=== PATIENT | female | born 1970 | race Caucasian/White ===

== ENCOUNTER 2017-05-10 13:23 | Emergency (ER) | payer OTHER ==
--- NOTE | 2017-05-10 14:41 | ED ---
General Adult HPI - General Chief complaint: Skin/Abscess/Foreign Body Stated complaint: rash Time Seen by Provider: 05/10/17 14:01 Source: patient, RN notes reviewed Mode of arrival: ambulatory Limitations: no limitations - History of Present Illness Initial comments: 46 yo female with no significant past medical history presents for evaluation of a rash on her right leg with associated swelling. Patient states the rash has been worsening over the past 2 days however she has had a rash on and off for 6 months. His been on her back, and bilateral lower extremities, as well as her neck. The rash comes and goes will spontaneously resolve and then recur. She denies fever. Denies any recent antibiotics, she is not on any medication. She does have a history of lower extremity DVT but is not currently on any anticoagulation. Patient does believe the rash is parasitic in nature or may be related to sugar diet. - Related Data Home Medications Medication Instructions Recorded Confirmed No Known Home Medications [No 05/10/17 05/10/17 Known Home Medications] Allergies Allergy/AdvReac Type Severity Reaction Status Date / Time No Known Allergies Allergy Verified 05/10/17 14:01 Review of Systems ROS Statement: Those systems with pertinent positive or pertinent negative responses have been documented in the HPI. ROS Other: All systems not noted in ROS Statement are negative. Constitutional: Denies: fever, chills Respiratory: Denies: cough Endocrine: Denies: fatigue Gastrointestinal: Denies: nausea, vomiting Past Medical History Past Medical History: Deep Vein Thrombosis (DVT) History of Any Multi-Drug Resistant Organisms: None Reported Past Surgical History: Tubal Ligation Past Psychological History: No Psychological Hx Reported Smoking Status: Never smoker Past Alcohol Use History: Occasional Past Drug Use History: None Reported General Exam Limitations: no limitations General appearance: alert, in no apparent distress Head exam: Present: atraumatic, normocephalic Eye exam: Present: normal appearance, PERRL ENT exam: Present: normal exam, normal oropharynx, mucous membranes moist Neck exam: Present: normal inspection, full ROM Respiratory exam: Present: normal lung sounds bilaterally. Absent: respiratory distress Cardiovascular Exam: Present: regular rate, normal rhythm GI/Abdominal exam: Present: soft. Absent: distended, tenderness Extremities exam: Present: normal capillary refill, other (Rash described below) . Absent: tenderness Back exam: Present: rash noted Neurological exam: Present: alert, oriented X3, CN II-XII intact. Absent: motor sensory deficit Psychiatric exam: Present: normal affect, normal mood Skin exam: Present: warm, rash, erythema, vesicles. Absent: petechiae (Rash primarily on the right lower extremity and low back as well as upper neck, there is erythema, ulceration with superficial breakdown, no bulla, no petechia. ) Course Vital Signs 05/10/17 05/10/17 13:46 16:00 Temperature 96.8 F L Pulse Rate 73 63 Respiratory 16 18 Rate Blood Pressure 134/60 127/60 O2 Sat by Pulse 99 98 Oximetry Medical Decision Making - Medical Decision Making 46-year-old female presenting with a 6 month history of rash. Rash comes and goes over this time. Primarily in her right lower extremity back and neck. 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 Laboratory studies reveal normal episode come, normal platelets, C-reactive protein is 10.3 which is normal. Ultrasound is negative for acute DVT. Patient will be given outpatient dermatology follow-up. Case was discussed with the patient's primary care physician. He is aware of the rash and agrees with outpatient dermatology follow-up. - Lab Data Result diagrams: 05/10/17 14:28 05/10/17 14:28 Lab Results 05/10/17 05/10/17 05/10/17 Range/Units 14:28 14:28 14:28 WBC 6.1 (3.8-10.6) k/uL RBC 3.91 (3.80-5.40) m/uL Hgb 12.3 (11.4-16.0) gm/dL Hct 37.0 (34.0-46.0) % MCV 94.8 (80.0-100.0) fL MCH 31.5 (25.0-35.0) pg MCHC 33.2 (31.0-37.0) g/dL RDW 13.6 (11.5-15.5) % Plt Count 237 (150-450) k/uL Neutrophils % 60 % Lymphocytes % 26 % Monocytes % 6 % Eosinophils % 5 % Basophils % 1 % Neutrophils # 3.7 (1.3-7.7) k/uL Lymphocytes # 1.6 (1.0-4.8) k/uL Monocytes # 0.4 (0-1.0) k/uL Eosinophils # 0.3 (0-0.7) k/uL Basophils # 0.0 (0-0.2) k/uL ESR 18 (0-20) mm/hr Sodium 141 (137-145) mmol/L Potassium 3.8 (3.5-5.1) mmol/L Chloride 106 (98-107) mmol/L Carbon Dioxide 24 (22-30) mmol/L Anion Gap 11 mmol/L BUN 6 L (7-17) mg/dL Creatinine 0.70 (0.52-1.04) mg/dL Est GFR (MDRD) Af Amer >60 (>60 ml/min/1.73 sqM) Est GFR (MDRD) Non-Af >60 (>60 ml/min/1.73 sqM) Glucose 82 (74-99) mg/dL Calcium 9.1 (8.4-10.2) mg/dL Total Bilirubin 1.5 H (0.2-1.3) mg/dL AST 15 (14-36) U/L ALT 29 (9-52) U/L Alkaline Phosphatase 94 (38-126) U/L C-Reactive Protein 10.3 H (<10.0) mg/L Total Protein 6.8 (6.3-8.2) g/dL Albumin 4.0 (3.5-5.0) g/dL Urine Color Urine Appearance (Clear) Urine pH (5.0-8.0) Ur Specific [place] (1.001-1.035) Urine Protein (Negative) Urine Glucose (UA) (Negative) Urine Ketones (Negative) Urine Blood (Negative) Urine Nitrite (Negative) Urine Bilirubin (Negative) Urine Urobilinogen (<2.0) mg/dL Ur Leukocyte Esterase (Negative) Urine HCG, Qual Not Detected (Not Detectd) 05/10/17 Range/Units 14:28 WBC (3.8-10.6) k/uL RBC (3.80-5.40) m/uL Hgb (11.4-16.0) gm/dL Hct (34.0-46.0) % MCV (80.0-100.0) fL MCH (25.0-35.0) pg MCHC (31.0-37.0) g/dL RDW (11.5-15.5) % Plt Count (150-450) k/uL Neutrophils % % Lymphocytes % % Monocytes % % Eosinophils % % Basophils % % Neutrophils # (1.3-7.7) k/uL Lymphocytes # (1.0-4.8) k/uL Monocytes # (0-1.0) k/uL Eosinophils # (0-0.7) k/uL Basophils # (0-0.2) k/uL ESR (0-20) mm/hr Sodium (137-145) mmol/L Potassium (3.5-5.1) mmol/L Chloride (98-107) mmol/L Carbon Dioxide (22-30) mmol/L Anion Gap mmol/L BUN (7-17) mg/dL Creatinine (0.52-1.04) mg/dL Est GFR (MDRD) Af Amer (>60 ml/min/1.73 sqM) Est GFR (MDRD) Non-Af (>60 ml/min/1.73 sqM) Glucose (74-99) mg/dL Calcium (8.4-10.2) mg/dL Total Bilirubin (0.2-1.3) mg/dL AST (14-36) U/L ALT (9-52) U/L Alkaline Phosphatase (38-126) U/L C-Reactive Protein (<10.0) mg/L Total Protein (6.3-8.2) g/dL Albumin (3.5-5.0) g/dL Urine Color Light Yellow Urine Appearance Clear (Clear) Urine pH 7.5 (5.0-8.0) Ur Specific [place] 1.004 (1.001-1.035) Urine Protein Negative (Negative) Urine Glucose (UA) Negative (Negative) Urine Ketones Negative (Negative) Urine Blood Negative (Negative) Urine Nitrite Negative (Negative) Urine Bilirubin Negative (Negative) Urine Urobilinogen <2.0 (<2.0) mg/dL Ur Leukocyte Esterase Negative (Negative) Urine HCG, Qual (Not Detectd) Disposition Clinical Impression: Contact dermatitis Disposition: HOME SELF-CARE Instructions: Acute Rash (ED) Referrals: Frank Garza MD [Primary Care Provider] - 1-2 days Akua Cancino MD [STAFF PHYSICIAN] - 1-2 days Time of Disposition: 16:17
[2017-05-10 14:48] LABS: Basophils % (A) 1 %; CHCM 33.9; Eosinophils # (A) 0.3 k/uL (0-0.7); Eosinophils % (A) 5 %; HDW 2.52; HGB 12.3 gm/dL (11.4-16.0); Luc # (Auto) 0.11; Luc % (Auto) 2; Lymphocytes # (A) 1.6 k/uL (1.0-4.8); Lymphocytes % (A) 26 %; MCH 31.5 pg (25.0-35.0); MCHC 33.2 g/dL (31.0-37.0); MCV 94.8 fL (80.0-100.0); Mean Platelet Volume 7.6; Monocytes # (A) 0.4 k/uL (0-1.0); Monocytes % (A) 6 %; Neutrophils # (A) 3.7 k/uL (1.3-7.7); Neutrophils % (A) 60 %; RBC 3.91 m/uL (3.80-5.40); RDW 13.6 % (11.5-15.5); WBC 6.1 k/uL (3.8-10.6); WBC (Perox) 5.86
[2017-05-10 14:57] LABS: Appearance,Urine Clear (Clear); Bilirubin,Urine Negative (Negative); Glucose,Urine (UA) Negative (Negative); Ketones,Urine Negative (Negative); Leukocyte Esterase,Urine Negative (Negative); Nitrite,Urine Negative (Negative); PH, Urine 7.5 (5.0-8.0); Protein,Urine Negative (Negative); Specific Gravity,Urine 1.004 (1.001-1.035); UA Billing (MACRO vs. MICRO) CHEM; Urobilinogen,Urine <2.0 mg/dL (<2.0)
[2017-05-10 15:05] LABS: ALT 29 U/L (9-52); AST 15 U/L (14-36); Alkaline Phosphatase 94 U/L (38-126); Anion Gap 11 mmol/L; Blood Urea Nitrogen 6 mg/dL (7-17); C Reactive Protein 10.3 mg/L (<10.0); Calcium 9.1 mg/dL (8.4-10.2); Carbon Dioxide 24 mmol/L (22-30); Chloride 106 mmol/L (98-107); Glucose 82 mg/dL (74-99); Non-African American GFR(MDRD) >60 (>60 ml/min/1.73 sqM); Potassium 3.8 mmol/L (3.5-5.1); Sodium 141 mmol/L (137-145); Total Bilirubin 1.5 mg/dL (0.2-1.3); Total Protein 6.8 g/dL (6.3-8.2)
[2017-05-10 16:01] VITALS: RESP 18
[2017-05-10 16:01] LABS: Erythrocyte Sedimentation Rate 18 mm/hr (0-20)
--- NOTE | 2017-05-10 16:08 | US ---
EXAMINATION TYPE: US venous doppler duplex LE RT DATE OF EXAM: 05/10/2017 3:55 PM COMPARISON: NONE CLINICAL HISTORY: Pain. SIDE PERFORMED: Right TECHNIQUE: The lower extremity deep venous system is examined utilizing real time linear array sonog marco with graded compression, doppler sonography and color-flow sonography. VESSELS IMAGED: External Iliac Vein (EIV) Common Femoral Vein Deep Femoral Vein Greater Saphenous Vein * Femoral Vein Popliteal Vein Small Saphenous Vein * Proximal Calf Veins (* superficial vessels) Grayscale, color doppler, spectral doppler imaging performed of the deep veins of the lower extremity . There is normal flow, compressibility, vascular waveforms . Right Leg: Negative for DVT IMPRESSION: No evidence for DVT.
[2017-05-10 16:51] VITALS: BP 122/59; PULSE 66; TEMP 98.5
== END 2017-05-10 16:50 | disposition home or self-care (01) ==
LOC: EC 13:23
DX: L25.9 Unspecified contact dermatitis, unspecified cause (principal)
CPT/HCPCS: 36415; 80053; 81003; 81025; 85025; 85652; 86140; 99283

== ENCOUNTER 2019-09-05 10:38 | Emergency (ER) | payer OTHER ==
[2019-09-05] MEDS ORDERED: SODIUM CHLORIDE 0.9% 1,000 ML IV ONE (11:16)
[2019-09-05] MEDS ORDERED: MORPHINE SULFATE 4 MG/ML SYRINGE IVP STA (11:55)
[2019-09-05] MEDS ORDERED: KETOROLAC 30 MG/ML 1 ML VIAL IVP STA (11:55)
[2019-09-05 11:56] VITALS: TEMP 97.2
--- NOTE | 2019-09-05 11:56 | ED ---
Skin/Abscess/FB HPI - General Chief complaint: Skin/Abscess/Foreign Body Stated complaint: leg pain Time Seen by Provider: 09/05/19 10:44 Source: patient, RN notes reviewed, old records reviewed Mode of arrival: ambulatory Limitations: no limitations - History of Present Illness Initial comments: 48-year-old female, presents today for evaluation for concern for a rash over bilateral lower extremities, arms neck and ears. She's been having this rash f or over 3 years intermittently. Patient poor she's been a multiple specialists including [facility] infectious disease. As stated the Patient doesn't seem to have any infectious disease and unsure of the source of her rash has time. She reports she had a biopsy 2 weeks ago but doesn't have the results that this time. Patient came in today for concern for worsening pain in her lower extremities. Patient states that she has had no fevers or chills. She frequently wraps her legs with menthol-like dressings, and place his magnets on her legs to help with pain. - Related Data Home Medications Medication Instructions Recorded Confirmed Lidocaine/Menthol [Icy Hot 4%-1% 1 patch TOPICAL DAILY PRN 09/05/19 09/05/19 Patch] Allergies Allergy/AdvReac Type Severity Reaction Status Date / Time No Known Allergies Allergy Verified 09/05/19 13:42 Review of Systems ROS Statement: Those systems with pertinent positive or pertinent negative responses have been documented in the HPI. ROS Other: All systems not noted in ROS Statement are negative. Past Medical History Past Medical History: Deep Vein Thrombosis (DVT) History of Any Multi-Drug Resistant Organisms: None Reported Past Surgical History: Tubal Ligation Past Psychological History: No Psychological Hx Reported Smoking Status: Never smoker Past Alcohol Use History: Occasional Past Drug Use History: None Reported General Exam - General Exam Comments Initial Comments: 48-year-old female. Alert and oriented. No distress. Limitations: no limitations General appearance: alert, in no apparent distress Head exam: Present: atraumatic, normocephalic, normal inspection Eye exam: Present: normal appearance, PERRL, EOMI. Absent: scleral icterus, conjunctival injection, periorbital swelling ENT exam: Present: normal exam, mucous membranes moist Neck exam: Present: normal inspection. Absent: tenderness, meningismus, lymphadenopathy Respiratory exam: Present: normal lung sounds bilaterally. Absent: respiratory distress, wheezes, rales, rhonchi, stridor Cardiovascular Exam: Present: regular rate, normal rhythm, normal heart sounds. Absent: systolic murmur, diastolic murmur, rubs, gallop, clicks GI/Abdominal exam: Present: soft, normal bowel sounds. Absent: distended, tenderness, guarding, rebound, rigid Back exam: Present: normal inspection Neurological exam: Present: alert, oriented X3, CN II-XII intact Psychiatric exam: Present: normal affect, normal mood Skin exam: Present: warm, dry, intact, normal color, rash (Patient has excoriations over lower extremities, multiple areas of picking hyde. ) Course Vital Signs 09/05/19 09/05/19 09/05/19 10:44 11:55 12:16 Temperature 98.5 F 97.2 F L Pulse Rate 109 H 64 70 Respiratory 18 18 16 Rate Blood Pressure 103/63 103/67 98/59 O2 Sat by Pulse 98 99 100 Oximetry 09/05/19 09/05/19 09/05/19 12:30 13:30 14:17 Temperature Pulse Rate 74 70 74 Respiratory 18 18 20 Rate Blood Pressure 98/59 86/54 95/62 O2 Sat by Pulse 99 99 99 Oximetry Medical Decision Making - Medical Decision Making 48-year-old female presents today for concerns for intermittent rash for the past 3 years. Patient believes that she also had a parasite past her stool she is a very of this on her bone. She also has multiple pictures on her phone of her skin so on the back. Patient at this time has no fevers other complaints. Her main complaint is the pain in her lower extremities from the rash. At this time Patient has blood work was reviewed and unremarkable. We discussed case with Dr. Robles and discussed case with Dr. Jerez. States the Patient is follow-up with her outpatient office assistant. This time patient's given a short course of pain medicine and advised to follow close follow-up with primary care doctor and specialist. All questions were answered. - Lab Data Result diagrams: 09/05/19 11:45 09/05/19 11:45 Lab Results 09/05/19 09/05/19 Range/Units 11:45 11:45 WBC 8.0 (3.8-10.6) k/uL RBC 4.09 (3.80-5.40) m/uL Hgb 12.2 (11.4-16.0) gm/dL Hct 37.6 (34.0-46.0) % MCV 91.8 (80.0-100.0) fL MCH 29.8 (25.0-35.0) pg MCHC 32.5 (31.0-37.0) g/dL RDW 12.9 (11.5-15.5) % Plt Count 342 (150-450) k/uL Neutrophils % 64 % Lymphocytes % 18 % Monocytes % 4 % Eosinophils % 13 % Basophils % 1 % Neutrophils # 5.1 (1.3-7.7) k/uL Lymphocytes # 1.4 (1.0-4.8) k/uL Monocytes # 0.3 (0-1.0) k/uL Eosinophils # 1.0 H (0-0.7) k/uL Basophils # 0.1 (0-0.2) k/uL ESR 25 H (0-20) mm/hr Sodium 139 (137-145) mmol/L Potassium 5.3 H (3.5-5.1) mmol/L Chloride 105 (98-107) mmol/L Carbon Dioxide 24 (22-30) mmol/L Anion Gap 10 mmol/L BUN 14 (7-17) mg/dL Creatinine 0.57 (0.52-1.04) mg/dL Est GFR (CKD-EPI)AfAm >90 (>60 ml/min/1.73 sqM) Est GFR (CKD-EPI)NonAf >90 (>60 ml/min/1.73 sqM) Glucose 107 H (74-99) mg/dL Calcium 9.5 (8.4-10.2) mg/dL Total Bilirubin 0.8 (0.2-1.3) mg/dL AST 28 (14-36) U/L ALT 13 (9-52) U/L Alkaline Phosphatase 106 (38-126) U/L C-Reactive Protein 11.5 H (<10.0) mg/L Total Protein 8.0 (6.3-8.2) g/dL Albumin 4.5 (3.5-5.0) g/dL Disposition Clinical Impression: Rash, Excoriation Disposition: HOME SELF-CARE Condition: Good Instructions (If sedation given, give patient instructions): Acute Rash (ED) Additional Instructions: Please use medication as discussed. follow up with biopsy. Please follow up with family doctor if symptoms have not improved over the next two days. Please return to the emergency room if your symptoms increase or worsen or for any other concerns. Is patient prescribed a controlled substance at d/c from ED?: No Referrals: Frank Garza MD [Primary Care Provider] - 1-2 days Time of Disposition: 14:00
[2019-09-05 12:00] LABS: Basophils # (A) 0.1 k/uL (0-0.2); Basophils % (A) 1 %; Eosinophils % (A) 13 %; HCT 37.6 % (34.0-46.0); HGB 12.2 gm/dL (11.4-16.0); Lymphocytes # (A) 1.4 k/uL (1.0-4.8); Lymphocytes % (A) 18 %; MCH 29.8 pg (25.0-35.0); MCHC 32.5 g/dL (31.0-37.0); MCV 91.8 fL (80.0-100.0); Mean Platelet Volume 6.8; Monocytes # (A) 0.3 k/uL (0-1.0); Monocytes % (A) 4 %; Neutrophils # (A) 5.1 k/uL (1.3-7.7); Neutrophils % (A) 64 %; Platelet Count 342 k/uL (150-450); RBC 4.09 m/uL (3.80-5.40); RDW 12.9 % (11.5-15.5)
[2019-09-05 12:14] LABS: ALT 13 U/L (9-52); AST 28 U/L (14-36); African American GFR (CKD) >90 (>60 ml/min/1.73 sqM); Albumin 4.5 g/dL (3.5-5.0); Alkaline Phosphatase 106 U/L (38-126); Anion Gap 10 mmol/L; Blood Urea Nitrogen 14 mg/dL (7-17); C Reactive Protein 11.5 mg/L (<10.0); Calcium 9.5 mg/dL (8.4-10.2); Carbon Dioxide 24 mmol/L (22-30); Chloride 105 mmol/L (98-107); Glucose 107 mg/dL (74-99); Sodium 139 mmol/L (137-145); Total Bilirubin 0.8 mg/dL (0.2-1.3)
[2019-09-05 12:29] LABS: Potassium 5.3 mmol/L (3.5-5.1)
[2019-09-05 13:04] LABS: Erythrocyte Sedimentation Rate 25 mm/hr (0-20)
[2019-09-05] MEDS ORDERED: ACET/COD 300 MG/30 MG STARTER PACK 6 TAB BTL PO STA (14:01)
[2019-09-05 14:17] VITALS: BP 95/62; PULSE 74; RESP 20
== END 2019-09-05 14:27 | disposition home or self-care (01) ==
LOC: EC 10:38
DX: S80.812A Abrasion, left lower leg, initial encounter (principal); S80.811A Abrasion, right lower leg, initial encounter; F42.4 Excoriation (skin-picking) disorder; X58.XXXA Exposure to other specified factors, initial encounter
CPT/HCPCS: 36415; 80053; 85652; 85025; 86140; 87040; 86038; 99284; 96374; 96375; 96361; J2270; J1885

== ENCOUNTER 2019-10-11 11:47 | Emergency (ER) | payer OTHER ==
[2019-10-11 11:59] VITALS: BP 103/61; PULSE 98; RESP 18; TEMP 98.5
[2019-10-11 13:01] LABS: Basophils # (A) 0.1 k/uL (0-0.2); Basophils % (A) 1 %; Eosinophils # (A) 0.4 k/uL (0-0.7); Eosinophils % (A) 5 %; HCT 34.7 % (34.0-46.0); HGB 11.7 gm/dL (11.4-16.0); Lymphocytes # (A) 1.3 k/uL (1.0-4.8); Lymphocytes % (A) 17 %; MCH 29.8 pg (25.0-35.0); MCHC 33.6 g/dL (31.0-37.0); MCV 88.5 fL (80.0-100.0); Mean Platelet Volume 7.6; Monocytes # (A) 0.4 k/uL (0-1.0); Monocytes % (A) 6 %; Neutrophils # (A) 5.2 k/uL (1.3-7.7); Neutrophils % (A) 70 %; Platelet Count 258 k/uL (150-450); RBC 3.92 m/uL (3.80-5.40); RDW 12.7 % (11.5-15.5); WBC 7.5 k/uL (3.8-10.6)
[2019-10-11 13:03] LABS: Appearance,Urine Clear (Clear); Bilirubin,Urine Negative (Negative); Blood,Urine Trace (Negative); Color,Urine Colorless; Glucose,Urine (UA) Negative (Negative); Ketones,Urine Negative (Negative); Leukocyte Esterase,Urine Moderate (Negative); Nitrite,Urine Negative (Negative); PH, Urine 5.5 (5.0-8.0); Protein,Urine Negative (Negative); RBC,Urine <1 /hpf (0-5); Specific Gravity,Urine 1.002 (1.001-1.035); Urobilinogen,Urine <2.0 mg/dL (<2.0); WBC,Urine <1 /hpf (0-5)
[2019-10-11 13:09] LABS: ALT 15 U/L (4-34); AST 20 U/L (14-36); African American GFR (CKD) >90 (>60 ml/min/1.73 sqM); Albumin 4.2 g/dL (3.5-5.0); Alkaline Phosphatase 108 U/L (38-126); Anion Gap 11 mmol/L; Blood Urea Nitrogen 15 mg/dL (7-17); Calcium 9.3 mg/dL (8.4-10.2); Carbon Dioxide 25 mmol/L (22-30); Chloride 101 mmol/L (98-107); Glucose 106 mg/dL (74-99); Non-African American GFR(CKD) 82 (>60 ml/min/1.73 sqM); Potassium 3.6 mmol/L (3.5-5.1); Sodium 137 mmol/L (137-145); Squamous Epithelial Cell,Urine 1 /hpf (0-4); Total Bilirubin 0.7 mg/dL (0.2-1.3); Total Protein 7.6 g/dL (6.3-8.2)
--- NOTE | 2019-10-11 13:15 | ED ---
General Adult HPI - General Chief complaint: Skin/Abscess/Foreign Body Stated complaint: right neck swelling Time Seen by Provider: 10/11/19 12:00 Source: patient, RN notes reviewed Mode of arrival: ambulatory Limitations: no limitations - History of Present Illness Initial comments: 49-year-old female presents emergency Department chief complaint of right-sided neck swelling. Patient states that she's had this ongoing skin issue and which she has peeling, discharge from her skin and states that she opens up and disorders everywhere. She has been evaluated extensively at multiple facilities with no acute findings. She states that she also has had what appeared to be herself forms in her stool in the past. Patient states she was never treated for this. She states her main complaint today is right-sided neck swelling. Patient states that she had some peeling of her skin on the ears states that she now has swelling, tenderness and a firm feeling to the right cervical neck she has no difficulty breathing or difficulty swallowing. She states she's had extreme infections of her legs from his infected digit skin areas. Patient believes that she may have some sort of undiagnosed skin disorder versus possible parasite versus heavy metal infection. Patient states that she always has normal lab work. - Related Data Home Medications Medication Instructions Recorded Confirmed Lidocaine/Menthol [Icy Hot 4%-1% 1 patch TOPICAL DAILY PRN 09/05/19 09/05/19 Patch] Allergies Allergy/AdvReac Type Severity Reaction Status Date / Time acetaminophen [From Tylenol] Allergy Itching Verified 10/11/19 11:59 Review of Systems ROS Statement: Those systems with pertinent positive or pertinent negative responses have been documented in the HPI. ROS Other: All systems not noted in ROS Statement are negative. Past Medical History Past Medical History: Deep Vein Thrombosis (DVT) History of Any Multi-Drug Resistant Organisms: None Reported Past Surgical History: Tubal Ligation Past Psychological History: No Psychological Hx Reported Smoking Status: Never smoker Past Alcohol Use History: Occasional Past Drug Use History: None Reported General Exam Limitations: no limitations General appearance: alert, in no apparent distress Head exam: Present: atraumatic, normocephalic, normal inspection Eye exam: Present: normal appearance, PERRL, EOMI. Absent: scleral icterus, conjunctival injection, periorbital swelling ENT exam: Present: normal exam, normal oropharynx, mucous membranes moist, TM's normal bilaterally, normal external ear exam Neck exam: Present: tenderness, full ROM, lymphadenopathy, other (Large right- sided mass). Absent: normal inspection, meningismus Respiratory exam: Present: normal lung sounds bilaterally. Absent: respiratory distress, wheezes, rales, rhonchi, stridor Cardiovascular Exam: Present: regular rate, normal rhythm, normal heart sounds. Absent: systolic murmur, diastolic murmur, rubs, gallop, clicks GI/Abdominal exam: Present: soft, normal bowel sounds. Absent: distended, tenderness, guarding, rebound, rigid Neurological exam: Present: alert, oriented X3, CN II-XII intact Skin exam: Present: warm, rash. 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 Patient lives unremarkable. Patient be referred to ENT for surgical admission and removal. - Lab Data Result diagrams: 10/11/19 12:46 10/11/19 12:46 Lab Results 10/11/19 10/11/19 10/11/19 Range/Units 12:46 12:46 12:46 WBC 7.5 (3.8-10.6) k/uL RBC 3.92 (3.80-5.40) m/uL Hgb 11.7 (11.4-16.0) gm/dL Hct 34.7 (34.0-46.0) % MCV 88.5 (80.0-100.0) fL MCH 29.8 (25.0-35.0) pg MCHC 33.6 (31.0-37.0) g/dL RDW 12.7 (11.5-15.5) % Plt Count 258 (150-450) k/uL Neutrophils % 70 % Lymphocytes % 17 % Monocytes % 6 % Eosinophils % 5 % Basophils % 1 % Neutrophils # 5.2 (1.3-7.7) k/uL Lymphocytes # 1.3 (1.0-4.8) k/uL Monocytes # 0.4 (0-1.0) k/uL Eosinophils # 0.4 (0-0.7) k/uL Basophils # 0.1 (0-0.2) k/uL Sodium 137 (137-145) mmol/L Potassium 3.6 (3.5-5.1) mmol/L Chloride 101 (98-107) mmol/L Carbon Dioxide 25 (22-30) mmol/L Anion Gap 11 mmol/L BUN 15 (7-17) mg/dL Creatinine 0.83 (0.52-1.04) mg/dL Est GFR (CKD-EPI)AfAm >90 (>60 ml/min/1.73 sqM) Est GFR (CKD-EPI)NonAf 82 (>60 ml/min/1.73 sqM) Glucose 106 H (74-99) mg/dL Plasma Lactic Acid [place] (0.7-2.0) mmol/L Calcium 9.3 (8.4-10.2) mg/dL Total Bilirubin 0.7 (0.2-1.3) mg/dL AST 20 (14-36) U/L ALT 15 (4-34) U/L Alkaline Phosphatase 108 (38-126) U/L Total Protein 7.6 (6.3-8.2) g/dL Albumin 4.2 (3.5-5.0) g/dL TSH 3.090 (0.465-4.680) mIU/L Urine Color Colorless Urine Appearance Clear (Clear) Urine pH 5.5 (5.0-8.0) Ur Specific [place] 1.002 (1.001-1.035) Urine Protein Negative (Negative) Urine Glucose (UA) Negative (Negative) Urine Ketones Negative (Negative) Urine Blood Trace H (Negative) Urine Nitrite Negative (Negative) Urine Bilirubin Negative (Negative) Urine Urobilinogen <2.0 (<2.0) mg/dL Ur Leukocyte Esterase Moderate H (Negative) Urine RBC <1 (0-5) /hpf Urine WBC <1 (0-5) /hpf Ur Squamous Epith Cells 1 (0-4) /hpf Heterophile Antibody (Negative) 10/11/19 10/11/19 Range/Units 12:46 13:27 WBC (3.8-10.6) k/uL RBC (3.80-5.40) m/uL Hgb (11.4-16.0) gm/dL Hct (34.0-46.0) % MCV (80.0-100.0) fL MCH (25.0-35.0) pg MCHC (31.0-37.0) g/dL RDW (11.5-15.5) % Plt Count (150-450) k/uL Neutrophils % % Lymphocytes % % Monocytes % % Eosinophils % % Basophils % % Neutrophils # (1.3-7.7) k/uL Lymphocytes # (1.0-4.8) k/uL Monocytes # (0-1.0) k/uL Eosinophils # (0-0.7) k/uL Basophils # (0-0.2) k/uL Sodium (137-145) mmol/L Potassium (3.5-5.1) mmol/L Chloride (98-107) mmol/L Carbon Dioxide (22-30) mmol/L Anion Gap mmol/L BUN (7-17) mg/dL Creatinine (0.52-1.04) mg/dL Est GFR (CKD-EPI)AfAm (>60 ml/min/1.73 sqM) Est GFR (CKD-EPI)NonAf (>60 ml/min/1.73 sqM) Glucose (74-99) mg/dL Plasma Lactic Acid [place] 1.1 (0.7-2.0) mmol/L Calcium (8.4-10.2) mg/dL Total Bilirubin (0.2-1.3) mg/dL AST (14-36) U/L ALT (4-34) U/L Alkaline Phosphatase (38-126) U/L Total Protein (6.3-8.2) g/dL Albumin (3.5-5.0) g/dL TSH (0.465-4.680) mIU/L Urine Color Urine Appearance (Clear) Urine pH (5.0-8.0) Ur Specific [place] (1.001-1.035) Urine Protein (Negative) Urine Glucose (UA) (Negative) Urine Ketones (Negative) Urine Blood (Negative) Urine Nitrite (Negative) Urine Bilirubin (Negative) Urine Urobilinogen (<2.0) mg/dL Ur Leukocyte Esterase (Negative) Urine RBC (0-5) /hpf Urine WBC (0-5) /hpf Ur Squamous Epith Cells (0-4) /hpf Heterophile Antibody Negative (Negative) Disposition 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 Is patient prescribed a controlled substance at d/c from ED?: No Referrals: Frank Garza MD [Primary Care Provider] - 1-2 days Mendoza Florian MD [STAFF PHYSICIAN] - 1-2 days Time of Disposition: 14:30
--- NOTE | 2019-10-11 13:39 | CT ---
EXAMINATION TYPE: CT soft tissue neck w con DATE OF EXAM: 10/11/2019 1:27 PM COMPARISON: None HISTORY: Right neck swelling CT DLP: 198.7 mGycm Automated exposure control for dose reduction was used. CONTRAST: CT scan of the neck is performed following with IV Contrast, patient injected with 100 ml mL of Isovu e 300. Axial images are obtained, coronal and sagittal reformatted images are reviewed. FINDINGS: Visualized intracranial structures are unremarkable. Visualized portions of the paranasal sinuses and mastoids are clear. Visualized portions of the lungs are normal. There is straightening of the normal cervical lordosis. Alignment is maintained. Atlantoaxial relatio nships are normal. There is degenerative disc disease and hypertrophic spondylosis most marked at C4- 5, C5-6 and C6-7. There is mild uncovertebral joint disease present at these levels. The facets are u nremarkable. There is enlargement of the right parotid gland. There is a heterogenous 2 cm lesion in the main body of the gland. A second 1.3 cm lesion is noted just inferior to this. The left parotid gland appears normal. Both submandibular glands appear normal. There is an enlarged 1.2 cm deep cervical node on th e right. There are at least 2 adjacent lymph nodes which are enlarged to a lesser extent. There are n o pathologic lymph nodes noted on the left. Parapharyngeal, oropharyngeal and laryngeal soft tissues are normal. The thyroid gland enhances homogeneously. IMPRESSION: 1. MULTIPLE RIGHT-SIDED PAROTID NODULES. THE MULTIPLICITY FAVORS PLEOMORPHIC ADENOMA. THE PRESENCE OF LYMPH NODES ON THE RIGHT IS CONCERNING. TISSUE DIAGNOSIS WOULD LIKELY BE WORTHWHILE. 2. DEGENERATIVE CHANGE WITHIN THE CERVICAL SPINE.
== END 2019-10-11 14:42 | disposition home or self-care (01) ==
LOC: EC 11:47
DX: D11.0 Benign neoplasm of parotid gland (principal); Z88.6 Allergy status to analgesic agent
CPT/HCPCS: 36415; 83655 ×2; 80053; 84443; 83605; 85025; 86308; 81001; 82175; 83825 ×2; 82570; 70491; 99284; Q9967

== ENCOUNTER 2019-10-27 12:36 | Day surgery (SDC) | payer OTHER ==
[2019-10-27 13:25] VITALS: RESP 18; TEMP 98.1
--- NOTE | 2019-10-27 14:56 | US ---
ULTRASOUND GUIDED FNA AND CORE BIOPSY RIGHT PAROTID MASS: CLINICAL HISTORY: Right parotid mass requested for biopsy. Patient reports that the mass is recently ruptured with bruising coming from the skin. Preliminary imaging demonstrated diffuse heterogeneity w ithin the soft tissues. FINDINGS: The procedure was explained to the patient. The risks, complications, benefits and alternatives were discussed and any questions were answered. Informed consent was obtained. Patient was placed supin e on the ultrasound table and prepped and draped in the usual sterile fashion. Utilizing a 25 gauge needle, 3 passes were made into the suspected location the right parotid mass. The lymph node could n ot be seen. 2 18-gauge core samples were also obtained. Patient was stable throughout the procedure. Pathology is pending. All elements of maximal barrier technique were utilized. IMPRESSION: 1. Successful ultrasound guided FNA and core biopsy right parotid mass.
[2019-10-27 17:04] VITALS: BP 120/70; PULSE 72
== END 2019-10-27 14:15 | disposition home or self-care (01) ==
LOC: RADPROMAIN 12:36
PROVIDERS: ATTEND Otolaryngology
DX: K11.20 Sialoadenitis, unspecified (principal)
CPT/HCPCS: 10005; 42400; 76942; 87070; 87077; 87186; 87205; 88305; 88312

== ENCOUNTER → 2020-06-17 | Outpatient (CLI) | payer OTHER ==
[2020-06-17 15:38] LABS: Basophils % (A) 1 %; Eosinophils # (A) 0.4 k/uL (0-0.7); Eosinophils % (A) 7 %; HGB 12.5 gm/dL (11.4-16.0); Lymphocytes # (A) 1.3 k/uL (1.0-4.8); Lymphocytes % (A) 26 %; MCH 29.7 pg (25.0-35.0); MCHC 31.3 g/dL (31.0-37.0); MCV 95.1 fL (80.0-100.0); Mean Platelet Volume 7.6; Monocytes # (A) 0.2 k/uL (0-1.0); Monocytes % (A) 5 %; Neutrophils # (A) 2.9 k/uL (1.3-7.7); Neutrophils % (A) 60 %; Platelet Count 256 k/uL (150-450); RBC 4.21 m/uL (3.80-5.40); RDW 13.1 % (11.5-15.5); WBC 4.9 k/uL (3.8-10.6)
[2020-06-17 23:55] LABS: ALT 13 U/L (8-44); AST 18 U/L (13-35); African American GFR (CKD) 116.3 (60.0-200.0); Albumin/Globulin Ratio 1.68 (1.60-3.17); Alkaline Phosphatase 105 U/L (41-126); BUN/Creat Ratio 11.43 Ratio (12.00-20.00); C Reactive Protein <0.4 mg/dL (0.0-0.8); Calcium 9.7 mg/dL (8.7-10.3); Chloride 106 mmol/L (96-109); Globulin 2.8 g/dL (1.6-3.3); Glucose 87 mg/dL (70-110); Non-African American GFR(CKD) 100.3 (60.0-200.0); Sodium 140 mmol/L (135-145); Total Bilirubin 0.8 mg/dL (0.3-1.2); Total Protein 7.5 g/dL (6.2-8.2)
[2020-06-18 00:42] LABS: Erythrocyte Sedimentation Rate 57 mm/Hr (0-30)
[2020-06-18 00:44] LABS: INR 1.05 (0.90-1.11); Prothrombin Time 11.2 sec (9.9-11.9)
[2020-06-18 07:08] LABS: Gliadin AB IgA, Deaminated NEGATIVE (NEGATIVE); Gliadin AB IgA, Unit <0.2 U/mL; Gliadin AB IgG, Deaminated NEGATIVE (NEGATIVE)
== END | disposition home or self-care (01) ==
LOC: LABWHC1 14:49
PROVIDERS: ATTEND Nurse Practitioner
DX: D68.59 Other primary thrombophilia (principal); R19.4 Change in bowel habit
CPT/HCPCS: 36415; 80053; 83516; 83630; 85025; 85610; 85652; 86140; 87045; 87046; 87328; 87329

== ENCOUNTER 2020-06-21 10:00 | Day surgery (SDC) | payer OTHER ==
[2020-06-16 16:27] VITALS: BMI 24.5
[2020-06-21] MEDS ORDERED: LACTATED RINGERS 1,000 ML IV SCH (10:36)
[2020-06-21] MEDS ORDERED: LIDOCAINE 1% (10MG/ML) FOR IV START INTRADERMA PRN (10:36)
[2020-06-21 10:41] VITALS: TEMP 98.1
[2020-06-21] MEDS ORDERED: LACTATED RINGERS 1,000 ML IV ONE (10:41)
[2020-06-21] MEDS ORDERED: PROPOFOL 10 MG/ML 20 ML VIAL IV ONE (12:28)
[2020-06-21] MEDS ORDERED: LIDOCAINE 1% INJ 10MG/ML (20 ML MDV) ONE (12:28)
--- NOTE | 2020-06-21 13:15 | P.PCN ---
Date of Procedure: 06/21/20 Description of Procedure: Brief history: Patient is a 49-year-old female presenting for outpatient evaluation with EGD and colonoscopy for nausea and vomiting and altered bowel function. Patient reports a four-year history of multiple complaints including skin and digestive problems. She reports painful bumping on itchy red skin rash. She had been seen at [facility] by the dermatology and infectious disease service for evaluation. She reports multiple loose bowel movements daily one to 3 approximately described as mucoid loose black sludge she also reports the passage of parasites instrumentations in her stool. She states previous stool testing negative for parasites. No history of colonoscopy or EGD. Procedure performed: Esophagogastroduodenoscopy with biopsy Colonoscopy with biopsy Estimated blood loss: Minimal. Preoperative diagnosis: Nausea and vomiting, altered bowel function Anesthesia: MAC Procedure: After informed consent was obtained from the patient was brought into the endoscopy unit and IV sedation was administered by anesthesia under continuous monitoring. Initially upper endoscopy was done. The Olympus GF 190 video endoscope was inserted into the mouth and esophagus intubated without any difficulty and was gradually advanced into the stomach and duodenum and carefully examined. The bulb and second part of the duodenum appeared normal, with biopsies taken. The scope was then withdrawn into the stomach adequately insufflated with air and upon careful examination the antrum and body, cardia and fundus appeared normal, except for some mild punctate erythema in the antrum and body suggestive of mild gastritis with biopsies taken. The scope was then withdrawn into the esophagus. The GE junction was located at 38 cm to the incisors and biopsied. It appeared regular with no erythema erosions or ulcerations. Rest of the esophagus appeared normal. Patient tolerated the procedure well. At this time the patient continued to remain sedation. Initial digital rectal examination was normal. Olympus CF 190 video colonoscope was then inserted into the rectum and gradually advanced to the cecum without any difficulty. Careful examination was performed as the scope was gradually being withdrawn. The prep was fair with a large amount of liquid and semisolid stool throughout the colon which was extensively lavaged and suctioned, however complete visualization was not possible due to the fair prep. 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 The terminal ileum was intubated and also appeared normal. Random biopsies were taken of the terminal ileum, right colon, transverse colon, left colon and rectum due to the patient's complaints of altered bowel function. Retroflexion was performed in the rectum and no lesions were noted. Patient tolerated the procedure well. Impression: 1. Mild gastritis. Biopsies of the duodenum, antrum and body and GE junction. 2. 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 Otherwise normal-appearing colon from rectum to cecum with normal-appearing terminal ileum and random biopsies taken of the terminal ileum, right colon, transverse colon, left colon and rectum given altered bowel function. Fair prep. Recommendations: Findings of this examination were discussed with the patient as well as her fri end. Okay to resume diet. Okay to resume medications. Await pathology from biopsies. The patient has an appointment scheduled in the gastroenterology clinic and agrees to follow-up for the results of her biopsies as well as further medical management. Given the fair prep, recommendation is also for repeat colonoscopy in the next 3-6 months with a 2 day prep for screening for malignant neoplasm of the colon.
[2020-06-21 13:16] VITALS: RESP 16
[2020-06-21 13:32] VITALS: BP 128/93; PULSE 67
== END 2020-06-21 14:10 | disposition home or self-care (01) ==
LOC: ORWHC2ENDO 10:00
PROVIDERS: ATTEND Internal Medicine
DX: K29.50 Unspecified chronic gastritis without bleeding (principal); K63.9 Disease of intestine, unspecified; R21 Rash and other nonspecific skin eruption; Z88.6 Allergy status to analgesic agent; Z98.51 Tubal ligation status; Z98.890 Other specified postprocedural states; Z85.828 Personal history of other malignant neoplasm of skin; Z86.718 Personal history of other venous thrombosis and embolism
CPT/HCPCS: 45380; 43239; 88305; 88313; J2001; J2704

== ENCOUNTER → 2020-10-06 | Outpatient (CLI) | payer OTHER ==
[2020-10-06 13:19] LABS: Basophils % (A) 1 %; Eosinophils # (A) 0.2 k/uL (0-0.7); Eosinophils % (A) 6 %; HCT 37.7 % (34.0-46.0); HGB 12.3 gm/dL (11.4-16.0); Lymphocytes # (A) 1.1 k/uL (1.0-4.8); Lymphocytes % (A) 29 %; MCH 30.2 pg (25.0-35.0); MCHC 32.5 g/dL (31.0-37.0); MCV 92.7 fL (80.0-100.0); Mean Platelet Volume 7.5; Monocytes # (A) 0.2 k/uL (0-1.0); Monocytes % (A) 6 %; Neutrophils # (A) 2.2 k/uL (1.3-7.7); Neutrophils % (A) 55 %; Platelet Count 211 k/uL (150-450); RBC 4.07 m/uL (3.80-5.40); RDW 13.5 % (11.5-15.5); WBC 3.9 k/uL (3.8-10.6)
[2020-10-06 16:19] LABS: Erythrocyte Sedimentation Rate 17 mm/hr (0-20)
[2020-10-06 22:51] LABS: Thyroid Peroxidase Antibodies 405.9 U/mL (0.0-60.0)
[2020-10-06 23:53] LABS: % Iron Saturation 11.94 (12.00-45.00); ALT 15 U/L (8-44); AST 14 U/L (13-35); African American GFR (CKD) 115.5 (60.0-200.0); Albumin/Globulin Ratio 1.76 (1.60-3.17); Alkaline Phosphatase 113 U/L (41-126); BUN/Creat Ratio 27.14 Ratio (12.00-20.00); C Reactive Protein <0.4 mg/dL (0.0-0.8); Calcium 9.4 mg/dL (8.7-10.3); Chloride 107 mmol/L (96-109); Chol/HDL Ratio 2.75; Cholesterol 176 mg/dL (0-200); Creatine Kinase 77 U/L (26-186); Globulin 2.5 g/dL (1.6-3.3); Glucose 93 mg/dL (70-110); Iron 37 ug/dL (50-170); Non-African American GFR(CKD) 99.6 (60.0-200.0); Sodium 143 mmol/L (135-145); Total Bilirubin 0.5 mg/dL (0.3-1.2); Total Iron Binding Capacity 310 ug/dL (228-460); Total Protein 6.9 g/dL (6.2-8.2); Triglycerides <50.0 mg/dL (0.0-149.0)
[2020-10-07 11:26] LABS: Immunoglobulin M 86.1 mg/dL (40.0-280.0)
[2020-10-07 14:50] LABS: Angiotensin-1 Converting Enz. 45 U/L (8-52)
== END | disposition home or self-care (01) ==
LOC: LABWHC1 11:50
PROVIDERS: ATTEND Family Medicine
DX: Z13.228 Encounter for screening for other metabolic disorders (principal); R21 Rash and other nonspecific skin eruption; R53.82 Chronic fatigue, unspecified
CPT/HCPCS: 36415; 80053; 80061; 82164; 82306; 82525; 82533; 82550; 82607; 82784; 82785; 83540; 83550; 84439; 84443; 85025; 85652; 86038; 86140; 86334; 86376

== ENCOUNTER → 2021-04-25 | Outpatient (CLI) | payer OTHER ==
[2021-04-25 17:07] LABS: Basophils % (A) 1 %; Eosinophils # (A) 0.3 k/uL (0-0.7); Eosinophils % (A) 8 %; HCT 35.6 % (34.0-46.0); HGB 12.1 gm/dL (11.4-16.0); Lymphocytes % (A) 25 %; MCH 32.3 pg (25.0-35.0); MCHC 34.1 g/dL (31.0-37.0); MCV 94.9 fL (80.0-100.0); Mean Platelet Volume 7.4; Monocytes # (A) 0.2 k/uL (0-1.0); Monocytes % (A) 5 %; Neutrophils # (A) 2.4 k/uL (1.3-7.7); Neutrophils % (A) 59 %; Platelet Count 198 k/uL (150-450); RBC 3.75 m/uL (3.80-5.40); RDW 12.4 % (11.5-15.5)
[2021-04-25 20:41] LABS: Erythrocyte Sedimentation Rate 91 mm/hr (0-20)
[2021-04-26 02:42] LABS: Gliadin AB IgA, Deaminated NEGATIVE (NEGATIVE); Gliadin AB IgA, Unit 0.2 U/mL; Gliadin AB IgG, Deaminated NEGATIVE (NEGATIVE); HIV 2 AB Non-Reactive (Non-Reactive); HIV AB P24 Non-Reactive (Non-Reactive); HIV P24 AG Non-Reactive (Non-Reactive)
[2021-04-26 04:00] LABS: Toxoplasma Antibody (IgG) <3.0 IU/mL (<7.2); Toxoplasma Antibody (IgM) <3.0 AU/mL (<8.0)
[2021-04-26 09:18] LABS: % Iron Saturation 21.09 (12.00-45.00); ALT 15 U/L (8-44); AST 17 U/L (13-35); African American GFR (CKD) 115.5 (60.0-200.0); Albumin/Globulin Ratio 1.63 (1.60-3.17); Alkaline Phosphatase 109 U/L (41-126); C Reactive Protein <0.4 mg/dL (0.0-0.8); Carbon Dioxide 18.7 mmol/L (21.6-31.8); Chloride 109 mmol/L (96-109); Creatine Kinase 93 U/L (26-186); Globulin 2.7 g/dL (1.6-3.3); Glucose 115 mg/dL (70-110); Iron 62 ug/dL (50-170); Non-African American GFR(CKD) 99.6 (60.0-200.0); Potassium 4.5 mmol/L (3.5-5.5); Sodium 141 mmol/L (135-145); Thyroid Peroxidase Antibodies 798.7 U/mL (0.0-60.0); Total Bilirubin 1.1 mg/dL (0.3-1.2); Total Iron Binding Capacity 294 ug/dL (228-460); Total Protein 7.1 g/dL (6.2-8.2)
[2021-04-26 10:37] LABS: Angiotensin-1 Converting Enz. 51 U/L (8-52)
[2021-04-26 18:49] LABS: Procalcitonin 0.04 ng/mL (0.02-0.09)
[2021-04-28 17:14] LABS: Arsenic Whole Blood <3 mcg/L (< 23); Mercury Whole Blood 3 mcg/L (< 11)
== END | disposition home or self-care (01) ==
LOC: LABWHC1 16:03
PROVIDERS: ATTEND Family Medicine
DX: E06.3 Autoimmune thyroiditis (principal); L03.818 Cellulitis of other sites; R53.83 Other fatigue; R21 Rash and other nonspecific skin eruption
CPT/HCPCS: 36415; 80053; 82164; 82175; 82306; 82525; 82550; 82570; 82607; 83036; 83516; 83540; 83550; 83630; 83655; 83825; 84145; 84439; 84443; 84480; 85025; 85652; 86001; 86140; 86376; 86480; 86606; 86609; 86618; 86777; 86778; 87045; 87046; 87328; 87329; 87390

== ENCOUNTER 2021-06-11 21:41 | Emergency (ER) | payer OTHER ==
[2021-06-11 21:50] VITALS: BP 126/81; PULSE 68; RESP 19; TEMP 98.8
[2021-06-11] MEDS ORDERED: LORATADINE 10 MG TAB PO STA (22:49)
[2021-06-11] MEDS ORDERED: IBUPROFEN 600 MG TAB PO STA (22:49)
--- NOTE | 2021-06-11 22:50 | ED ---
General Adult HPI - General Chief complaint: Skin/Abscess/Foreign Body Stated complaint: Possible Medication Reaction Time Seen by Provider: 06/11/21 22:07 Source: patient, RN notes reviewed Mode of arrival: ambulatory - History of Present Illness Initial comments: 50-year-old female presents to the emergency room for chief complaint of rash. Patient reports she has had a rash on her left arm on and off for months to years. The rash comes and goes on other places of her body as well. Patient states she has seen several specialists for this including multiple dermatologis ts. She reports she has had biopsies that initially revealed cancer but then repeat biopsies were negative for cancer. She reports that she was told from biopsies it is from rubbing her skin too hard. Patient denies fevers or chills. Patient just started taking Cipro as well as doxycycline and a steroid for this. Patient states it is itchy and sometimes painful Patient has no other complaints at this time including shortness of breath, chest pain, abdominal pain, nausea or vomiting, headache, or visual changes. - Related Data Home Medications Medication Instructions Recorded Confirmed Camphor Patch 1 patch TOPICAL DAILY PRN 06/16/20 06/16/20 Digestive Bitters 1 tab PO BID 06/16/20 06/16/20 Protesea 4 tab PO DAILY 06/16/20 06/16/20 Previous Rx's Medication Instructions Recorded Ibuprofen [Motrin] 600 mg PO Q8HR PRN #20 tab 06/11/21 hydrOXYzine HCL [Atarax] 25 mg PO TID PRN #20 tab 06/11/21 Allergies Allergy/AdvReac Type Severity Reaction Status Date / Time acetaminophen [From Tylenol] Allergy Itching Verified 06/11/21 21:50 Review of Systems ROS Statement: Those systems with pertinent positive or pertinent negative responses have been documented in the HPI. ROS Other: All systems not noted in ROS Statement are negative. Past Medical History Past Medical History: Cancer, Deep Vein Thrombosis (DVT), Skin Disorder Additional Past Medical History / Comment(s): DVT 2013, SKIN CANCER History of Any Multi-Drug Resistant Organisms: None Reported Past Surgical History: Tubal Ligation Additional Past Surgical History / Comment(s): skin biopsy jul 2019 - pre cancer cells discovered. Past Anesthesia/Blood Transfusion Reactions: No Reported Reaction Past Psychological History: No Psychological Hx Reported Smoking Status: Never smoker Past Alcohol Use History: None Reported Past Drug Use History: None Reported - Past Family History Mother Family Medical History: Cancer, Deep Vein Thrombosis (DVT) Additional Family Medical History / Comment(s): SKIN CANCER General Exam General appearance: alert Head exam: Present: atraumatic Eye exam: Present: normal appearance, PERRL, EOMI. Absent: scleral icterus ENT exam: Present: normal exam, mucous membranes moist Neck exam: Present: normal inspection, full ROM. Absent: tenderness Respiratory exam: Present: normal lung sounds bilaterally. Absent: respiratory distress, wheezes Cardiovascular Exam: Present: regular rate, normal rhythm, normal heart sounds Extremities exam: Present: other (Patient has mild ulcerations of the left forearm. There is no significant surrounding cellulitis. There is mild edema. No purulent drainage. No abscess is evident. negative nikolsky sign) Course Vital Signs 06/11/21 21:47 Temperature 98.8 F Pulse Rate 68 Respiratory 19 Rate Blood Pressure 126/81 O2 Sat by Pulse 98 Oximetry Medical Decision Making - Medical Decision Making Vitals are stable. Physical exam as documented. Patient does have mild ulcerations noted of the left forearm with some mild edema. No significant erythema. I did recommend an x-ray however patient refuses stating x-rays make it worse. Patient reports she has had this for several years on and off and has seen several specialists. Patient is currently taking 2 antibiotics and a steroid. States she has been on these for a few days and it does not seem to be getting better. At this time I do not see any significant cellulitis. Patient is afebrile. 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 She should monitor for fevers and return if these occur. I also want her to closely follow with Dr. Carrion her primary care doctor. Disposition Clinical Impression: Acute dermatitis Disposition: HOME SELF-CARE Condition: Good Instructions (If sedation given, give patient instructions): Acute Rash (ED) Additional Instructions: Please take medications as directed. Follow-up with your doctor as well as rheumatology. Return to the emergency room for any worsening symptoms. Prescriptions: hydrOXYzine HCL [Atarax] 25 mg PO TID PRN #20 tab PRN Reason: Itching Ibuprofen [Motrin] 600 mg PO Q8HR PRN #20 tab PRN Reason: Pain Is patient prescribed a controlled substance at d/c from ED?: No Referrals: Piper Carrion MD [Primary Care Provider] - 1-2 days Ana Santiago MD [STAFF PHYSICIAN] - 1-2 days Time of Disposition: 22:48
== END 2021-06-11 23:05 | disposition home or self-care (01) ==
LOC: EC 21:41
DX: L30.9 Dermatitis, unspecified (principal); Z86.718 Personal history of other venous thrombosis and embolism; Z85.828 Personal history of other malignant neoplasm of skin; Z88.6 Allergy status to analgesic agent; Z98.51 Tubal ligation status
CPT/HCPCS: 87070; 87205; 99283

== ENCOUNTER 2024-04-26 21:18 | Emergency (ER) | payer MEDICARE, OTHER ==
[2024-04-26 21:41] VITALS: TEMP 97.9
[2024-04-26] MEDS: HYDROmorphone 1 MG/ML 1 ML SYRINGE IM STA (23:49)
[2024-04-27] MEDS: HYDROmorphone 1 MG/ML 1 ML SYRINGE IVP STA (00:58)
[2024-04-27 01:42] VITALS: RESP 18
[2024-04-27 02:14] LABS: Anisocytosis Slight; Basophils % (A) 1 %; Eosinophils # (A) 0.2 k/uL (0-0.7); Eosinophils % (A) 4 %; HCT 28.2 % (34.0-46.0); HGB 8.8 gm/dL (11.4-16.0); Hypochromasia Moderate; Lymphocytes # (A) 0.9 k/uL (1.0-4.8); Lymphocytes % (A) 20 %; MCH 27.2 pg (25.0-35.0); MCHC 31.3 g/dL (31.0-37.0); MCV 86.9 fL (80.0-100.0); Mean Platelet Volume 7.5; Monocytes # (A) 0.4 k/uL (0-1.0); Monocytes % (A) 8 %; Neutrophils # (A) 2.8 k/uL (1.3-7.7); Neutrophils % (A) 64 %; Platelet Count 271 k/uL (150-450); RBC 3.24 m/uL (3.80-5.40); WBC 4.4 k/uL (3.8-10.6)
[2024-04-27 02:38] LABS: ALT 17 U/L (4-34); AST 30 U/L (14-36); African American GFR (CKD) >90 (>60 ml/min/1.73 sqM); Albumin 3.3 g/dL (3.5-5.0); Alkaline Phosphatase 102 U/L (38-126); Anion Gap 5 mmol/L; Blood Urea Nitrogen 20 mg/dL (7-17); Calcium 8.6 mg/dL (8.4-10.2); Carbon Dioxide 22 mmol/L (22-30); Chloride 109 mmol/L (98-107); Glucose 93 mg/dL (74-99); Non-African American GFR(CKD) >90 (>60 ml/min/1.73 sqM); Potassium 4.2 mmol/L (3.5-5.1); Sodium 136 mmol/L (137-145); Total Bilirubin 0.3 mg/dL (0.2-1.3); Total Protein 6.1 g/dL (6.3-8.2)
--- NOTE | 2024-04-27 02:57 | ED ---
Extremity Problem HPI - General Chief complaint: Extremity Problem,Nontraumatic Stated complaint: Leg pain and leg bleeding Time Seen by Provider: 04/26/24 22:48 Source: patient Mode of arrival: ambulatory Limitations: no limitations - History of Present Illness Initial comments: 53-year-old female presenting with chief complaint of left leg pain. Patient has a chronic wound to the leg that has been there for several months. This is resulted in healing of large areas of skin to the left lower leg. She states that she will also have bleeding at times. She notes no change in appearance however today the pain was getting bad and she came here for pain management. States that the wound has not visibly worsened. She takes tramadol as needed. She has had no fevers. No nausea or vomiting. No red streaking up the leg. Patient has had multiple admissions at various hospitals for cellulitis. States that she used to go to wound care here but stopped because the dressings were too painful. She has been trying homeopathic regimens for her wound. She believes that there is some kind of parasite that is causing her wound, she has many pictures on her phone of pieces of debrided skin that she believes resembles parasites. - Related Data Home Medications Medication Instructions Recorded Confirmed Camphor Patch 1 patch TOPICAL DAILY PRN 06/16/20 06/16/20 Digestive Bitters 1 tab PO BID 06/16/20 06/16/20 Protesea 4 tab PO DAILY 06/16/20 06/16/20 Previous Rx's Medication Instructions Recorded Ibuprofen [Motrin] 600 mg PO Q8HR PRN #20 tab 06/11/21 hydrOXYzine HCL [Atarax] 25 mg PO TID PRN #20 tab 06/11/21 Allergies Allergy/AdvReac Type Severity Reaction Status Date / Time No Known Allergies Allergy Verified 04/27/24 01:49 Review of Systems ROS Statement: Those systems with pertinent positive or pertinent negative responses have been documented in the HPI. ROS Other: All systems not noted in ROS Statement are negative. Past Medical History Past Medical History: Cancer, Deep Vein Thrombosis (DVT), Skin Disorder Additional Past Medical History / Comment(s): DVT 2013, SKIN CANCER History of Any Multi-Drug Resistant Organisms: None Reported Past Surgical History: Tubal Ligation Additional Past Surgical History / Comment(s): skin biopsy jul 2019 - pre cancer cells discovered. Past Anesthesia/Blood Transfusion Reactions: No Reported Reaction Past Psychological History: No Psychological Hx Reported Smoking Status: Never smoker Past Alcohol Use History: None Reported Past Drug Use History: None Reported - Past Family History Mother Family Medical History: Cancer, Deep Vein Thrombosis (DVT) Additional Family Medical History / Comment(s): SKIN CANCER General Exam Limitations: no limitations General appearance: alert, in no apparent distress Head exam: Present: atraumatic, normocephalic Eye exam: Present: normal appearance, EOMI Neck exam: Present: normal inspection Respiratory exam: Absent: respiratory distress Cardiovascular Exam: Present: regular rate Left Lower Leg exam: Present: tenderness, swelling, deformity (Patient has a large wound with skin that has sloughed off) Neurological exam: Present: alert, oriented X3 Psychiatric exam: Present: normal affect, normal mood Skin exam: Present: erythema. Absent: dry, intact Course Vital Signs 04/26/24 04/26/24 04/27/24 21:35 22:30 03:01 Temperature 97.9 F Pulse Rate 77 81 80 Respiratory 22 18 18 Rate Blood Pressure 112/71 116/70 114/76 O2 Sat by Pulse 97 97 98 Oximetry Medical Decision Making - Medical Decision Making Was pt. sent in by a medical professional or institution (, PA, DOLL WIG MAKER, urgent care, hospital, or usp...) When possible be specific @ -No Did you speak to anyone other than the patient for history (EMS, parent, family, police, friend...)? What history was obtained from this source @ -No Did you review nursing and triage notes (agree or disagree)? Why? @ -I reviewed and agree with nursing and triage notes Were old charts reviewed (outside hosp., previous admission, EMS record, old EKG, old radiological studies, urgent care reports/EKG's, usp records)? Report findings @ -I reviewed patient's other visits including visit to wound care Differential Diagnosis (chest pain, altered mental status, abdominal pain women, abdominal pain men, vaginal bleeding, weakness, fever, dyspnea, syncope, headache, dizziness, GI bleed, back pain, seizure, CVA, palpatations, mental health, musculoskeletal)? @ -Differential includes cellulitis, allergic reaction, autoimmune disorder, this is not an all-inclusive list EKG interpreted by me (3pts min.). @ -As above X-rays interpreted by me (1pt min.). @ -None done CT interpreted by me (1pt min.). @ -None done U/S interpreted by me (1pt. min.). @ -None done What testing was considered but not performed or refused? (CT, X-rays, U/S, labs)? Why? @ -None What meds were considered but not given or refused? Why? @ -None Did you discuss the management of the patient with other professionals (professionals i.e. , PA, DOLL WIG MAKER, lab, RT, psych nurse, social science research assistant, entry level account executive, teacher, articulation officer, nurse case manager)? Give summary @ -No Was smoking cessation discussed for >3mins.? @ -No Was critical care preformed (if so, how long)? @ -No Were there social determinants of health that impacted care today? How? (Home lessness, low income, unemployed, alcoholism, drug addiction, transportation, low edu. Level, literacy, decrease access to med. care, care home, rehab)? @ -No Was there de-escalation of care discussed even if they declined (Discuss DNR or withdrawal of care, Hospice)? DNR status @ -No What co-morbidities impacted this encounter? (DM, HTN, Smoking, COPD, CAD, Cancer, CVA, ARF, Chemo, Hep., AIDS, mental health diagnosis, sleep apnea, morbid obesity)? @ -None Was patient admitted / discharged? Hospital course, mention meds given and route, prescriptions, significant lab abnormalities, going to OR and other pertinent info. @ -53-year-old female presenting with chief complaint of pain to her left lower leg wound. This wound has been there for several months. She states that she has had no changes in the wound itself but she was having some difficult to manage pain at home today. Patient has been seen at multiple facilities for this wound, she has not followed through with wound care stating it has been too painful. She has been trying homeopathic methods for wound healing. On exam there appears to be layers of skin that have sloughed off from the left lower leg. It is damp. Patient frequently coats it in Vicks vapor rub. She is given pain medication. Lab work shows no leukocytosis. Patient is anemic, when I discussed this with her she states that she is supposed to be on iron but does not like taking it because "it does not agree with her body" so she has been trying homeopathic methods. On reassessment patient reports improvement in her pain. Given that the patient has had no changes with the wound she should follow-up outpatient with PCP and infectious disease. She is agreeable with this plan. Follow-up with PCP. Report back to ER with any new or worsening sy mptoms. Discussed return parameters and answered all questions. Patient conveyed verbal understanding and agreed to the plan. I discussed this case in detail with my attending Dr. Riggins Undiagnosed new problem with uncertain prognosis? @ -No Drug Therapy requiring intensive monitoring for toxicity (Heparin, Nitro, Insulin, Cardizem)? @ -No Were any procedures done? @ -No Diagnosis/symptom? @ -Chronic leg wound Acute, or Chronic, or Acute on Chronic? @ -Acute Uncomplicated (without systemic symptoms) or Complicated (systemic symptoms)? @ -Uncomplicated Side effects of treatment? @ -No Exacerbation, Progression, or Severe Exacerbation? @ -No ] - Lab Data Result diagrams: 04/27/24 01:39 04/27/24 01:39 Lab Results 04/27/24 04/27/24 Range/Units 01:39 01:39 WBC 4.4 (3.8-10.6) k/uL RBC 3.24 L (3.80-5.40) m/uL Hgb 8.8 L (11.4-16.0) gm/dL Hct 28.2 L (34.0-46.0) % MCV 86.9 (80.0-100.0) fL MCH 27.2 (25.0-35.0) pg MCHC 31.3 (31.0-37.0) g/dL RDW 17.0 H (11.5-15.5) % Plt Count 271 (150-450) k/uL MPV 7.5 Neutrophils % 64 % Lymphocytes % 20 % Monocytes % 8 % Eosinophils % 4 % Basophils % 1 % Neutrophils # 2.8 (1.3-7.7) k/uL Lymphocytes # 0.9 L (1.0-4.8) k/uL Monocytes # 0.4 (0-1.0) k/uL Eosinophils # 0.2 (0-0.7) k/uL Basophils # 0.0 (0-0.2) k/uL Hypochromasia Moderate Anisocytosis Slight Sodium 136 L (137-145) mmol/L Potassium 4.2 (3.5-5.1) mmol/L Chloride 109 H (98-107) mmol/L Carbon Dioxide 22 (22-30) mmol/L Anion Gap 5 mmol/L BUN 20 H (7-17) mg/dL Creatinine 0.54 (0.52-1.04) mg/dL Est GFR (CKD-EPI)AfAm >90 (>60 ml/min/1.73 sqM) Est GFR (CKD-EPI)NonAf >90 (>60 ml/min/1.73 sqM) Glucose 93 (74-99) mg/dL Calcium 8.6 (8.4-10.2) mg/dL Total Bilirubin 0.3 (0.2-1.3) mg/dL AST 30 (14-36) U/L ALT 17 (4-34) U/L Alkaline Phosphatase 102 (38-126) U/L Total Protein 6.1 L (6.3-8.2) g/dL Albumin 3.3 L (3.5-5.0) g/dL Disposition Clinical Impression: Chronic wound of extremity Disposition: HOME SELF-CARE Condition: Fair Instructions (If sedation given, give patient instructions): Chronic Wound Care (ED) Additional Instructions: Follow-up with your PCP and infectious disease. Report back to ER with any new or worsening symptoms. Is patient prescribed a controlled substance at d/c from ED?: No Referrals: Elie Garcia MD [Primary Care Provider] - 1-2 days Alejandrina Contreras MD [STAFF PHYSICIAN] - 1-2 days Time of Disposition: 02:57
[2024-04-27 03:02] VITALS: BP 114/76; PULSE 80
== END 2024-04-27 03:13 | disposition home or self-care (01) ==
LOC: SUPCPDRO 21:18 → EC 21:18
DX: S81.802A Unspecified open wound, left lower leg, initial encounter (principal); D64.9 Anemia, unspecified; X58.XXXA Exposure to other specified factors, initial encounter
CPT/HCPCS: 36415; 80053; 85025; 87070; 87205; 87077; 87186; 99284; 96374; 96372; J1170 ×2

== ENCOUNTER 2024-06-02 02:53 | Inpatient (IN) | payer MEDICARE, OTHER ==
[~2024-06-02 02:53] MED LIST: PIPERACILLIN-TAZOBACTAM 3.375 GM VIAL ONE; SODIUM CHLORIDE 0.9% 1,000 ML BAG ONE; SODIUM CHLORIDE 0.9% 100 ML BAG ONE
[2024-06-02] MEDS ORDERED: PIPERACILLIN-TAZOBACTAM 3.375 GM VIAL ONE ×3 (09:12→23:23)
[2024-06-02] MEDS ORDERED: GABAPENTIN 300 MG CAP ONE ×3 (09:12→23:22)
[2024-06-02] MEDS ORDERED: HYDROcodone/APAP 7.5-325MG 1 EACH TAB ONE ×3 (09:26→20:58)
[2024-06-02] MEDS ORDERED: IBUPROFEN 600 MG TAB PO ONE ×2 (14:15→23:32)
[2024-06-02] MEDS ORDERED: HEPARIN SODIUM,PORCINE 5,000 UNIT/ML 1 ML VIAL ONE ×2 (16:44→23:21)
[2024-06-02] MEDS ORDERED: SODIUM CHLORIDE 0.9% 100 ML BAG IV ONE (23:59)
[2024-06-02] MEDS ORDERED: SODIUM CHLORIDE 0.9% 1,000 ML BAG ONE (23:59)
[2024-06-03] MEDS ORDERED: HYDROcodone/APAP 7.5-325MG 1 EACH TAB ONE ×4 (02:27→23:35)
[2024-06-03] MEDS ORDERED: IBUPROFEN 600 MG TAB PO ONE ×2 (06:07→15:21)
[2024-06-03] MEDS ORDERED: PIPERACILLIN-TAZOBACTAM 3.375 GM VIAL ONE ×4 (10:05→23:34)
[2024-06-03] MEDS ORDERED: PANTOPRAZOLE 40 MG TABLET PO ONE ×2 (10:09→20:39)
[2024-06-03] MEDS ORDERED: GABAPENTIN 300 MG CAP ONE ×3 (10:09→23:36)
[2024-06-03] MEDS ORDERED: HEPARIN SODIUM,PORCINE 5,000 UNIT/ML 1 ML VIAL ONE ×2 (10:10→23:36)
[2024-06-03] MEDS ORDERED: SODIUM CHLORIDE 0.9% 100 ML BAG ONE (23:59)
[2024-06-04] MEDS ORDERED: SODIUM CHLORIDE 0.9% 100 ML BAG ONE (02:35)
[2024-06-04] MEDS ORDERED: HYDROcodone/APAP 7.5-325MG 1 EACH TAB ONE (04:53)
[2024-06-04] MEDS ORDERED: GABAPENTIN 300 MG CAP ONE ×3 (09:03→21:54)
[2024-06-04] MEDS ORDERED: HEPARIN SODIUM,PORCINE 5,000 UNIT/ML 1 ML VIAL ONE ×2 (09:04→15:27)
[2024-06-04] MEDS ORDERED: PANTOPRAZOLE 40 MG TABLET PO ONE (09:04)
[2024-06-04] MEDS ORDERED: PIPERACILLIN-TAZOBACTAM 3.375 GM VIAL ONE ×2 (09:23→15:27)
[2024-06-04] MEDS ORDERED: HYDROcodone/APAP 10-325MG 1 EACH TAB ONE ×2 (15:49→21:54)
[2024-06-05] MEDS ORDERED: PIPERACILLIN-TAZOBACTAM 3.375 GM VIAL ONE ×2 (00:06→10:37)
[2024-06-05] MEDS ORDERED: HEPARIN SODIUM,PORCINE 5,000 UNIT/ML 1 ML VIAL ONE ×2 (00:10→10:37)
[2024-06-05] MEDS ORDERED: HYDROcodone/APAP 10-325MG 1 EACH TAB ONE ×2 (04:47→10:38)
[2024-06-05] MEDS ORDERED: PANTOPRAZOLE 40 MG TABLET PO ONE (10:37)
[2024-06-05] MEDS ORDERED: GABAPENTIN 300 MG CAP ONE (10:38)
--- NOTE | 2024-07-16 14:40 | CONS ---
CONSULTATION LOCATION: 624. REASON FOR CONSULTATION: Left lower extremity wound and cellulitis. HISTORY OF PRESENT ILLNESS: The patient is a 53-year-old female with a past medical history significant for chronic nonhealing wound to the left lower extremity that has been dealing with for more than 7 years now. The patient apparently did have multiple biopsies done by the local instructional systems design consultant as well as [facility]; however, the patient mentioned she has not been given any clear answer. The patient recently did have a culture done by her primary care physician in outpatient setting, which did grow Pseudomonas aeruginosa, for this the patient was advised to go to the hospital. The patient was complaining of increasing pain to the left lower extremity wound area, described the pain to be sharp, almost 9/10 when severe, some relieved with pain medication. Did have some drainage associated with swelling, mild redness. Did have some chills, but denies high-grade fever. The patient was evaluated by the ER physician, admitted to the hospital, started on Zosyn. Infectious Disease was consulted for further management of antibiotic therapy. REVIEW OF SYSTEMS: Positive points have been mentioned in the HPI. Rest of the systems are negative. PAST MEDICAL HISTORY: Chronic nonhealing wound to the left leg, multiple episodes of cellulitis, chronic pain. PAST SURGICAL HISTORY: Debridement of the wound and biopsy. SOCIAL HISTORY: Denies smoking, drinking, or any drug use. FAMILY HISTORY: Reviewed. ALLERGIES: No known drug allergies. MEDICATIONS: Currently include: 1. The patient is on Zosyn 3.375 g q.8 hours. 2. She is on. a. [place]. b. Gabapentin. c. Normal saline. d. Ativan. PHYSICAL EXAMINATION: VITAL SIGNS: Blood pressure 133/79, pulse of 81, temperature of 98.1. GENERAL DESCRIPTION: This is a middle-aged female, lying in bed, in no distress. No tachypnea or accessory muscle of respiration use. HEENT: No pallor. No scleral icterus. Oral mucous membranes are dry. NECK: Trachea is central. No thyromegaly. LUNGS: Unlabored breathing. Clear to auscultation anteriorly. No wheeze or crackle. HEART: S1, S2. Regular rate and rhythm. ABDOMEN: Soft. No tenderness. No guarding or rigidity. EXTREMITIES: Left lower extremity did have extensive wound with some slough tissue, minimal surrounding swelling. No foul smelling drainage. NEUROLOGICAL: The patient is awake, alert, oriented x3. Mood and affect normal. LABORATORY DATA: The patient did have a creatinine of 0.69. White count of 7.26. Outpatient culture positive for Pseudomonas aeruginosa. DIAGNOSTIC IMPRESSION AND PLAN: The patient with chronic nonhealing wound to the left lower extremity of questionable etiology, questionably venous stasis, now with a component of secondary bacterial infection and cellulitis. Outpatient culture positive for Pseudomonas aeruginosa that was resistant or intermediate to Cipro. 2-Zosyn 3.375 g q.8 hours. May need IV antibiotic on discharge with no oral option available. 3-Local wound care with Aquacel Silver dressing followed by Galo wrap for compression. Thank you for this consultation. Multiple questions and concerns were answered. MMODL / IJN: [id number] /
--- NOTE | 2024-07-16 14:40 | CONS ---
CONSULTATION REASON FOR CONSULTATION: Left leg ulcer. HISTORY: The patient was admitted mainly related to the discomfort of her left leg ulcer. She states that she has had a problem with this wound and wounds on the other leg for over 7 years. She has had seen a number of specialists, but the last tertiary referral was several years ago. She has not to date received any definitive diagnosis. She has been treating her leg simply with Silvadene. FAMILY HISTORY: Otherwise unremarkable. PHYSICAL EXAMINATION: We find a pleasant middle aged woman, in no current distress. She has good peripheral pulses. On examination of the leg, she has a circumferential deep ulceration, full thickness for distance of about 10 to 12 centimeters in length and circumferential around the leg. It is at least 0.3 cm in depth, has some granulation, but some mild slough. It is hard to tend to debride at this time. IMPRESSION: 1. Chronic left leg ulcer. 2. I feel very strongly that there is a systemic issue with this as a sequelae of that systemic problem. In terms of definitive relief, I would recommend that she as soon as possible see a bottom pounder cement shoes and if they are not unable to get a definitive diagnosis, I would recommend a tertiary referral to [facility] or [facility]. In the meantime, for the wound, I have discussed with the patient the need for leg elevation at least 12 inches above her heart except even go to the bathroom to decrease the edema and fluid in the tissues. Drainage is a major issue and I do feel that this will help with the drainage. Also, I recommend using a double row 4- inch Galo wrap to maintain compression. As far as the topical, I would recommend for the time being observe covered with gauze. This could be put on dry since there is currently a lot of fluid coming from the wound. If with elevation and compression, the weeping subsides, then I would wash enough with saline. I also feel that the patient would benefit from intermediate followup at the wound center both to treat the wound itself and also to be certain that there is a continued followup with dermatology and/or rheumatology, whichever seems most appropriate as the case progresses with tertiary referral as needed. MMODL / IJN: [id number] /
--- NOTE | 2024-07-16 14:41 | PN ---
PROGRESS NOTE DATE OF SERVICE: 06/05/2024 REASON FOR FOLLOWUP: Left lower extremity wound and cellulitis. INTERVAL HISTORY: The patient is afebrile. The patient is currently breathing comfortably. Denies any chest pain, shortness of breath or cough. No abdominal pain or any worsening pain in the left lower extremity. PHYSICAL EXAMINATION: VITAL SIGNS: Blood pressure 116/72, pulse of 88, temperature 98.1. GENERAL DESCRIPTION: This is a middle-aged female, up in the bed, in no distress. RESPIRATORY SYSTEM: Unlabored breathing. Clear to auscultation anteriorly. HEART: S1, S2. Regular rate and rhythm. ABDOMEN: Soft. No tenderness. EXTREMITIES: Left leg is currently dressed. No obvious drainage on the dressing. LABORATORY DATA: White count 3.61, creatinine 0.78. DIAGNOSTIC IMPRESSION AND PLAN: The patient presented with left lower extremity ulcer with secondary cellulitis. Outpatient culture positive for Pseudomonas aeruginosa with intermediate sensitivity to Cipro, Levaquin. Once sensitive, the patient was advised IV antibiotic; however, the patient has refused. Importance of IV antibiotic was discussed with the patient, continued to refuse. We will consider a 10-day course of oral Levaquin and close outpatient followup. She is supposed to follow up with Dermatology next week. Discussed with the resident physician. MMODL / IJN: [id number] /
--- NOTE | 2024-07-16 14:41 | PN ---
PROGRESS NOTE LOCATION: . REASON FOR FOLLOWUP: Left lower extremity ulcer and cellulitis. INTERVAL HISTORY: The patient is afebrile. She is breathing comfortably. Still complaining of burning pain to left lower extremity and drainage. No chest pain or shortness of breath or cough. No abdominal pain or diarrhea. PHYSICAL EXAMINATION: VITAL SIGNS: Blood pressure 133/79, pulse of 68, temperature of 98.1. GENERAL DESCRIPTION: This is a middle-aged female, lying in bed, in no distress. RESPIRATORY SYSTEM: Unlabored breathing. Clear to auscultation anteriorly. HEART: S1, S2. Regular rate and rhythm. ABDOMEN: Soft, no tenderness. EXTREMITIES: Left leg is currently dressed. DIAGNOSTIC IMPRESSION AND PLAN: The patient with left lower extremity chronic ulcer with recent outpatient culture positive for Pseudomonas aeruginosa. The patient is currently covered with Zosyn continue per the wound care team. She will likely need midline for outpatient IV antibiotic. This was discussed with the admitting physician. MMMARYANAL / IJN: [id number] /
== END 2024-06-05 19:50 | disposition home or self-care (01) | DRG 603 ==
LOC: 6NMEDSUR 02:53
PROVIDERS: ADMIT Emergency Medicine; ATTEND Emergency Medicine
PROC: 02HV33Z Insertion of Infusion Device into Superior Vena Cava, Percutaneous Approach (ICD-10-PCS; principal; 2024-06-05)
DX: L03.116 Cellulitis of left lower limb (principal); L97.829 Non-pressure chronic ulcer of other part of left lower leg with unspecified severity; B96.5 Pseudomonas (aeruginosa) (mallei) (pseudomallei) as the cause of diseases classified elsewhere; G89.29 Other chronic pain; D64.9 Anemia, unspecified
CPT/HCPCS: 82728; 83540; 83550; 85652; 87040; 96365; 99285

== ENCOUNTER → 2024-07-03 | Outpatient (CLI) | payer MEDICARE, OTHER ==
[2024-07-03 20:01] LABS: Basophils # (A) 0.05 X 10*3/uL (0.00-0.10); Basophils % (A) 0.9 %; Eosinophils # (A) 0.22 X 10*3/uL (0.04-0.35); Eosinophils % (A) 3.8 %; HGB 9.9 g/dL (12.0-15.0); Lymphocytes # (A) 0.79 X 10*3/uL (0.90-5.00); Lymphocytes % (A) 13.6 %; MCH 26.7 pg (27.0-32.0); MCHC 30.9 g/dL (32.0-37.0); MCV 86.3 FL (80.0-97.0); Mean Platelet Volume 10.9 FL (9.5-12.2); Monocytes # (A) 0.38 X 10*3/uL (0.20-1.00); Monocytes % (A) 6.5 %; NRBC Per 100 WBC 0 X 10*3/uL (0.00-0.01); Neutrophils # (A) 4.37 X 10*3/uL (1.80-7.70); Neutrophils % (A) 74.9 %; Platelet Count 240 X 10*3/uL (140-440); RBC 3.71 X 10*6/uL (4.10-5.20); RBC Morphology Normal (Normal); RDW 15.7 % (11.5-14.5); WBC 5.83 X 10*3/uL (4.50-10.00)
[2024-07-03 20:46] LABS: % Iron Saturation 6.47 (12.00-45.00); Ferritin 20.3 ng/mL (10.0-291.0)
== END | disposition home or self-care (01) ==
LOC: LABWHC1 15:41
PROVIDERS: ATTEND Internal Medicine Hematology & Oncology
DX: I82.5Z9 Chronic embolism and thrombosis of unspecified deep veins of unspecified distal lower extremity (principal); D68.59 Other primary thrombophilia; Z71.3 Dietary counseling and surveillance
CPT/HCPCS: 36415; 82728; 83540; 83550; 85025

== ENCOUNTER → 2025-04-08 | Outpatient (CLI) | payer MEDICARE, OTHER ==
[2025-04-08 19:23] LABS: Basophils # (A) 0.06 X 10*3/uL (0.00-0.10); Eosinophils # (A) 0.26 X 10*3/uL (0.04-0.35); Eosinophils % (A) 4.5 %; HGB 13.4 g/dL (12.0-15.0); Lymphocytes # (A) 1.09 X 10*3/uL (0.90-5.00); Lymphocytes % (A) 18.9 %; MCH 31.4 pg (27.0-32.0); MCHC 31.9 g/dL (32.0-37.0); MCV 98.4 FL (80.0-97.0); Mean Platelet Volume 9.9 FL (9.5-12.2); Monocytes # (A) 0.42 X 10*3/uL (0.20-1.00); Monocytes % (A) 7.3 %; NRBC Per 100 WBC 0 X 10*3/uL (0.00-0.01); Neutrophils # (A) 3.92 X 10*3/uL (1.80-7.70); Platelet Count 267 X 10*3/uL (140-440); RBC 4.27 X 10*6/uL (4.10-5.20); RDW 13.6 % (11.5-14.5); WBC 5.77 X 10*3/uL (4.50-10.00)
[2025-04-08 19:46] LABS: ALT 20 U/L (8-44); AST 20 U/L (13-35); Blood Urea Nitrogen 21.1 mg/dL (9.0-27.0)
[2025-04-08 21:38] LABS: Hepatitis B Surface Antigen Nonreactive (Nonreactive); Hepatitis C IgG Antibody Nonreactive (Nonreactive)
[2025-04-08 22:21] LABS: Hepatitis B Surface AB- Quant 3.5 mIU/mL
== END | disposition home or self-care (01) ==
LOC: LABWHC1 15:35
PROVIDERS: ATTEND Dermatology MOHS-Micrographic Surgery
DX: L88 Pyoderma gangrenosum (principal); Z79.899 Other long term (current) drug therapy
CPT/HCPCS: 36415; 82565; 84450; 84460; 84520; 85025; 86480; 86704; 86706; 86803; 87340